=== PATIENT | female | born 1990 | race Caucasian/White ===

== ENCOUNTER 2018-02-21 19:11 | Emergency (ER) | payer OTHER ==
[~2018-02-21] VITALS: Ht 165.1 cm; Wt 68.0 kg
[~2018-02-21 19:11] MED LIST: FLOVENT 110MCG7.9 GM IH; GILTUSS LIQUID237 M1 PO; PROVENTIL3 ML/2.5 M IH; SINGULAIR 10MG10 MG PO; VENTOLIN HFA18 GM IH
[2018-02-22] MEDS ORDERED: BUTALB-ACETAMI1 EACH PO (04:25)
[2018-02-22] MEDS ORDERED: ZANTAC300 MG PO (04:25)
[2018-02-22] MEDS ORDERED: CHLORDIAZEPOXI1 EACH PO (04:25)
== END 2018-02-22 04:59 | disposition home or self-care (01) ==
LOC: ER 19:11
DX: K29.70 Gastritis, unspecified, without bleeding (principal); G43.909 Migraine, unspecified, not intractable, without status migrainosus

== ENCOUNTER 2018-03-22 14:20 | Emergency (ER) | payer OTHER ==
[~2018-03-22] VITALS: Ht 165.1 cm; Wt 66.2 kg
[~2018-03-22 14:20] MED LIST changes: +BUTALB-ACETAMI1 EACH PO; +CHLORDIAZEPOXI1 EACH PO; +ZANTAC300 MG PO
== END 2018-03-22 14:50 | disposition home or self-care (01) ==
LOC: ER 14:20
DX: T78.1XXA Other adverse food reactions, not elsewhere classified, initial encounter (principal); L29.8 Other pruritus

== ENCOUNTER 2018-09-04 17:18 | Emergency (ER) | payer OTHER ==
[~2018-09-04] VITALS: Ht 165.1 cm; Wt 66.2 kg
[2018-09-04] MEDS ORDERED: ALLEGRA ALLERG180 MG (17:45)
== END 2018-09-04 20:20 | disposition home or self-care (01) ==
LOC: ER 17:18
DX: S50.01XA Contusion of right elbow, initial encounter (principal); S40.011A Contusion of right shoulder, initial encounter; S70.01XA Contusion of right hip, initial encounter; W18.39XA Other fall on same level, initial encounter; Y93.89 Activity, other specified; Y92.89 Other specified places as the place of occurrence of the external cause; Y99.8 Other external cause status

== ENCOUNTER 2018-10-15 18:57 | Emergency (ER) | payer OTHER ==
[~2018-10-15] VITALS: Ht 165.1 cm; Wt 69.9 kg
[~2018-10-15 18:57] MED LIST changes: +ALLEGRA ALLERG180 MG
[2018-10-16] MEDS ORDERED: ZITHROMAX500 MG PO (02:46)
[2018-10-16] MEDS ORDERED: KETO10TA2 PO (02:46)
[2018-10-16] MEDS ORDERED: TESSALON PERLE100 M1 PO (02:47)
== END 2018-10-16 03:00 | disposition home or self-care (01) ==
LOC: ER 18:57
DX: B34.9 Viral infection, unspecified (principal); J31.2 Chronic pharyngitis

== ENCOUNTER 2019-04-15 15:22 | Emergency (ER) | payer OTHER ==
[~2019-04-15] VITALS: Ht 165.1 cm; Wt 68.0 kg
[~2019-04-15 15:22] MED LIST changes: +KETO10TA2 PO; +TESSALON PERLE100 M1 PO; +ZITHROMAX500 MG PO
== END 2019-04-15 17:46 | disposition home or self-care (01) ==
LOC: ER 15:22
DX: S40.011A Contusion of right shoulder, initial encounter (principal); M75.81 Other shoulder lesions, right shoulder; W18.39XA Other fall on same level, initial encounter; Y93.89 Activity, other specified; Y92.69 Other specified industrial and construction area as the place of occurrence of the external cause; Y99.8 Other external cause status

== ENCOUNTER 2019-04-29 14:11 | Emergency (ER) | payer OTHER ==
[~2019-04-29] VITALS: Ht 165.1 cm; Wt 68.9 kg
== END 2019-04-29 22:37 | disposition home or self-care (01) ==
LOC: ER 14:11
DX: J37.0 Chronic laryngitis (principal); J32.8 Other chronic sinusitis

== ENCOUNTER → 2020-05-06 | Emergency (ER) | payer OTHER ==
[~2020-05-06] VITALS: Ht 165.1 cm; Wt 72.1 kg
[~2020-05-06] MED LIST changes: +DICLOFENAC SODI75 MG PO
== END | disposition home or self-care (01) ==
LOC: ER 18:48
DX: M75.51 Bursitis of right shoulder (principal); M75.81 Other shoulder lesions, right shoulder